=== PATIENT | male | born 1985 | race Caucasian/White ===

== ENCOUNTER 2021-06-01 16:29 | Emergency (ER) | payer OTHER ==
[~2021-06-01] VITALS: Ht 182.9 cm; Wt 87.5 kg
[2021-06-01] MEDS ORDERED: KETO10TA2 PO (22:36)
[2021-06-01] MEDS ORDERED: IVERMECTIN3 MG PO (22:36)
[2021-06-01] MEDS ORDERED: ZITHROMAX500 MG PO (22:36)
== END 2021-06-01 23:05 ==
LOC: ER 16:29
DX: J06.0 Acute laryngopharyngitis (principal); U07.1 COVID-19

== ENCOUNTER → 2021-06-04 13:00 | Outpatient (CLI) | payer OTHER ==
[~2021-06-04 13:00] MED LIST: IVERMECTIN3 MG PO; KETO10TA2 PO; ZITHROMAX500 MG PO
== END | disposition home or self-care (01) ==
LOC: ASH CLINIC 09:06
PROVIDERS: ATTEND General Practice
DX: Z23 Encounter for immunization (principal); U07.1 COVID-19

== ENCOUNTER → 2025-06-24 | Emergency (ER) | payer OTHER ==
[~2025-06-24] VITALS: Ht 182.9 cm; Wt 88.9 kg
== END | disposition left against medical advice (07) ==
LOC: ER 23:07
DX: Z53.21 Procedure and treatment not carried out due to patient leaving prior to being seen by health care provider (principal)